=== PATIENT | female | born 1980 | race Caucasian/White ===

== ENCOUNTER 2018-07-26 11:49 | Inpatient (IN) | payer OTHER ==
[~2018-07-26] VITALS: Ht 170.2 cm; Wt 118.0 kg
[2018-07-26 11:56] VITALS: Ht 170.2 cm; Wt 118.0 kg
[2018-07-26 12:46] LABS: BASOPHIL % 0.5 % (0-2); PLATELET COUNT 336 x10^3mcL (130-400); RED CELL DISTRIBUTION WIDTH 13.5 % (11.5-14.5)
[2018-07-26 12:58] LABS: CALCIUM 9.2 mg/dL (8.5-10.1); CARBON DIOXIDE 25.7 mmol/L (21-32); CHLORIDE SERUM 104 mmol/L (98-107); CREATININE SERUM 0.9 mg/dL (0.6-1.0); GFR1 > 60 mL/min; GLUCOSE SERUM 120 mg/dL (74-106); POTASSIUM SERUM 3.7 mmol/L (3.5-5.1); SODIUM SERUM 139 mmol/L (136-145)
[2018-07-26 15:26] VITALS: BP 145/87
[2018-07-26 16:34] VITALS: BP 113/71
[2018-07-26 20:03] VITALS: BP 127/73
[2018-07-27 05:23] VITALS: BP 113/63
[2018-07-27] MEDS ORDERED: MECLIZINE HYD12.5 MG PO (09:04)
[2018-07-27 09:08] VITALS: BP 113/63
[2018-07-27 09:53] VITALS: BP 109/64
== END 2018-07-27 10:36 | disposition home or self-care (01) | DRG 111 ==
LOC: ED 11:49 → DU 13:54
PROVIDERS: Emergency Medicine
DX: H81.10 Benign paroxysmal vertigo, unspecified ear (principal); E66.01 Morbid (severe) obesity due to excess calories; G43.909 Migraine, unspecified, not intractable, without status migrainosus; E78.00 Pure hypercholesterolemia, unspecified; R55 Syncope and collapse; Z68.41 Body mass index [BMI] 40.0-44.9, adult
CPT/HCPCS: 82962; 85378; J1200; J1885; J2765; J7030; J8597; Q0092